=== PATIENT | female | born 1945 | race Hispanic/Latino ===

== ENCOUNTER 2020-01-31 12:16 | Emergency (ER) | payer MEDICARE, OTHER ==
[~2020-01-31] VITALS: Ht 157.5 cm; Wt 68.0 kg
[~2020-01-31 12:16] MED LIST: CITALOPRAM10 MG PO; ENALAPRIL5 MG PO; GLIPIZIDE5 MG PO; MEDDOSEPAK PO; NEXIUM40 M1 PO; PRAVASTATIN SOD20 MG PO
[2020-01-31] MEDS ORDERED: MOTRIN400 MG PO ×3 (12:47→13:11)
[2020-01-31] MEDS ORDERED: GABAPENTIN100 MG PO (12:49)
[2020-01-31] MEDS ORDERED: MELOXICAM7.5 MG PO (12:50)
[2020-01-31] MEDS ORDERED: NORVASC5 M1 PO (12:50)
[2020-01-31] MEDS ORDERED: PRAVASTATIN SOD20 MG PO (12:51)
[2020-01-31] MEDS ORDERED: TRAMADOL HYDROC50 M1 PO ×3 (12:52→13:16)
[2020-01-31] MEDS ORDERED: METHYLPRED4 MG PO (12:57)
[2020-01-31] MEDS ORDERED: VALTREX500 MG PO (12:57)
[2020-01-31 13:20] VITALS: BP 147/65
== END 2020-01-31 13:20 | disposition home or self-care (01) ==
LOC: ED 12:16
DX: B02.9 Zoster without complications (principal); I10 Essential (primary) hypertension; E11.40 Type 2 diabetes mellitus with diabetic neuropathy, unspecified; G51.0 Bell's palsy; Z79.84 Long term (current) use of oral hypoglycemic drugs